=== PATIENT | male | born 1945 | race Hispanic/Latino ===

== ENCOUNTER → 2020-08-25 | Outpatient (CLI) | payer MEDICARE, OTHER ==
[~2020-08-25] MED LIST: FENTANYL CITRATE/PF 100MCG/2 ML INJ ONE; MIDAZOLAM HCL 2 MG/2 ML VIAL ONE
[2020-08-25 08:10] LABS: HEMOGLOBIN 9.7 g/dL (14.0-18.0)
[2020-08-25 08:20] LABS: INR 0.9; PROTHROMBIN TIME 12.6 seconds (11.9-14.5)
--- NOTE | 2020-08-25 10:25 | Diagnostic Imaging Report ---
Ultrasound guided liver biopsy, 08/25/2020. History: Abnormal LFTs. Comparison: None available. EBL: <1 cc. Specimen: 3 core biopsy samples, placed in formalin. Conscious sedation: 1 mg Versed, 50 mg fentanyl IV. Patient's vital signs were continuously monitored by nursing and remained stable throughout. Physician intraservice sedation time: 20 minutes. Discussion: Informed consent was obtained. Preprocedural H&P and timeout were performed. The patient's abdomen was prepped and draped in a sterile fashion with the patient in a left lateral decubitus position. The skin was anesthetized with 1% lidocaine without epinephrine. Using ultrasound guidance, the right hepatic lobe was sampled randomly using an 18-gauge core biopsy gun. 3 passes were made and samples were sent to pathology. Postprocedure image demonstrates no evidence of hematoma or active extravasation. The patient tolerated procedure well without evidence of immediate complication. IMPRESSION: Successful ultrasound guided liver core biopsy with conscious sedation. Signed by: Viktor Enamorado on 08/25/2020 10:21 AM
== END ==
LOC: US 07:25
PROVIDERS: ATTEND Internal Medicine Gastroenterology
DX: R94.5 Abnormal results of liver function studies (principal); R74.8 Abnormal levels of other serum enzymes; Z11.59 Encounter for screening for other viral diseases
CPT/HCPCS: 36415; 47000; 76942; 85014; 85049; 85610; 85730; 88307; 88313; J2250; J3010; U0002